=== PATIENT | female | born 1985 | race Caucasian/White ===

== ENCOUNTER 2017-11-04 11:38 | Emergency (ER) | payer OTHER ==
[2017-11-04 11:38] VITALS: BMI 29.2
[2017-11-04] MEDS ORDERED: Sodium Chloride 0.9% 1,000 ML IV ONE (12:06)
--- NOTE | 2017-11-04 12:09 | C.PDOC ---
History Of Present Illness 32 y/o female, with no significant prior history, presents to ED for evaluation of multiple episodes of vomiting since last night. Denies blood in vomit, fever , chills, diarrhea, or abdominal pain. Time Seen by Provider: 11/04/17 12:02 Chief Complaint (Nursing): GI Problem History Per: Patient History/Exam Limitations: no limitations Past Medical History Reviewed: Historical Data, Nursing Documentation, Vital Signs Vital Signs: Last Vital Signs Temp 98.3 F 11/04/17 17:14 Pulse 67 11/04/17 17:14 Resp 16 11/04/17 17:14 BP 109/64 11/04/17 17:14 Pulse Ox 99 11/04/17 17:14 - Medical History PMH: Anemia, Gastritis Denies: Chronic Kidney Disease Surgical History: Cholecystectomy - [facility] Procedures LAPAROSCOPIC CHOLECYSTECTOMY (07/12/14) LAPAROSCOPIC ROBOTIC ASSISTED PROCEDURE (07/12/14) Family History: States: CAD, Diabetes (mother), Hypertension (mother) - Social History Hx Tobacco Use: No Hx Alcohol Use: Yes Hx Substance Use: Yes - Immunization History Hx Tetanus Toxoid Vaccination: No Hx Influenza Vaccination: Yes Hx Pneumococcal Vaccination: No Review Of Systems Except As Marked, All Systems Reviewed And Found Negative. Constitutional: Negative for: Fever, Chills Cardiovascular: Negative for: Chest Pain Respiratory: Negative for: Shortness of Breath Gastrointestinal: Positive for: Nausea, Vomiting. Negative for: Abdominal Pain , Diarrhea, Constipation, Hematemesis Genitourinary: Negative for: Dysuria, Frequency, Hematuria Physical Exam - Physical Exam Appears: Non-toxic, No Acute Distress Skin: Normal Color, Warm, Dry Head: Atraumatic, Normacephalic Eye(s): bilateral: Normal Inspection Oral Mucosa: Moist Cardiovascular: Rhythm Regular Respiratory: Normal Breath Sounds, No Rales, No Rhonchi, No Wheezing Gastrointestinal/Abdominal: Normal Exam, Bowel Sounds, Soft, No Tenderness, No Guarding, No Rebound Back: No CVA Tenderness Extremity: Normal ROM Neurological/Psych: Oriented x3, Normal Speech ED Course And Treatment - Laboratory Results Result Diagrams: 11/04/17 12:11 11/04/17 12:11 O2 Sat by Pulse Oximetry: 100 (RA) Pulse Ox Interpretation: Normal Medical Decision Making Medical Decision Making: ro gastrits colitis viral syndrome Plan: Blood work Urinalysis Protonix Zofran IV fluids pt reassesd: symptoms improved. asking for food. no abd tenderness no adenxal tenderness Disposition - Disposition Referrals: [facility] [Outside] [facility] [Outside] Lexie Goel DO [Staff Provider] - Renny Stein MD [Staff Provider] - Disposition: HOME/ ROUTINE Disposition Time: 05:00 Condition: STABLE Additional Instructions: follow up withyour doctor/clinic and specialists. you may need further testing as an outpatient. return to er with worsening symptoms or concerns. Instructions: Acute Abdomen (Belly Pain) Forms: True Office ([place]er) - Clinical Impression Clinical Impression: Vomiting - Scribe Statement The provider has reviewed the documentation as recorded by the Scribe KP All medical record entries made by the Scribe were at my direction and personally dictated by me. I have reviewed the chart and agree that the record accurately reflects my personal performance of the history, physical exam, medical decision making, and the department course for this patient. I have also personally directed, reviewed, and agree with the discharge instructions and disposition.
[2017-11-04] MEDS ORDERED: Sodium Chloride 0.9% 1,000 ML ONE (12:14)
[2017-11-04 12:15] LABS: BASO % 0.4 % (0.0-2.0); EOS % 0.1 % (0.0-4.0); HEMOGLOBIN 12.6 g/dL (11.0-16.0); LYMPH # 1.3 K/uL (1.0-4.3); LYMPH % 14.5 % (20.0-40.0); MEAN CELL VOLUME 90.7 fL (81.0-99.0); MEAN CORPUSCULAR HEMOGLOBIN 30.8 pg (27.0-31.0); MEAN CORPUSCULAR HGB CONC 33.9 g/dL (33.0-37.0); MEAN PLATELET VOLUME 8.3 fL (7.2-11.7); MONO # 0.5 K/uL (0.0-0.8); MONO % 5.1 % (0.0-10.0); NEUT # 7.2 K/uL (1.8-7.0); NEUT % 79.9 % (50.0-75.0); RBC 4.1 Mil/uL (3.80-5.20); RED CELL DISTRIBUTION WIDTH 13.7 % (11.5-14.5)
[2017-11-04 12:22] LABS: INR 1.1
[2017-11-04 12:26] LABS: ALB/GLOB RATIO 1.5 (1.0-2.1); ALBUMIN 4.8 g/dL (3.5-5.0); ALT/SGPT 51 U/L (9-52); AST/SGOT 104 U/L (14-36); BILIRUBIN,DIRECT 0.3 mg/dL (0.0-0.4); BLOOD UREA NITROGEN 9 mg/dL (7-17); CALCIUM 9.6 mg/dl (8.6-10.4); GFR NON-AFRICAN AMERICAN > 60; LIPASE 82 U/L (23-300)
[2017-11-04 13:27] LABS: HCG,QUALITATIVE URINE NEGATIVE (NEGATIVE)
[2017-11-04 13:31] LABS: SQUAMOUS EPITHIAL 2 /hpf (0-5); URINE BILIRUBIN NEGATIVE (NEGATIVE); URINE BLOOD NEGATIVE (NEGATIVE); URINE CLARITY Clear (Clear); URINE COLOR Yellow (YELLOW); URINE GLUCOSE (UA) NORMAL (Normal); URINE LEUKOCYTE ESTERASE NEG Leu/uL (Negative); URINE PROTEIN NEGATIVE (NEGATIVE); URINE UROBILINOGEN NORMAL mg/dL (0.2-1.0)
[2017-11-04] MEDS ORDERED: Iohexol 350mg/ml 100 ML ONE (15:16)
--- NOTE | 2017-11-04 17:03 | CT ---
Date of service: 11/04/2017 PROCEDURE: CT Abdomen and Pelvis with contrast HISTORY: Vomiting COMPARISON: None. TECHNIQUE: Contiguous helical/transaxial sections of the abdomen and pelvis performed following intravenous contrast injection. Additional 2D sagittal and coronal reformats generated. Contrast dose: 100 cc Visipaque 320 Radiation dose: Total exam DLP = 540.27 MGy-cm. This CT exam was performed using one or more of the following dose reduction techniques: Automated exposure control, adjustment of the mA and/or kV according to patient size, and/or use of iterative reconstruction technique. FINDINGS: LOWER THORAX: Heart size normal. No significant pericardial effusion. Tiny hiatal hernia. Lung bases clear. LIVER: Liver demonstrates normal size. Mild fatty hepatic infiltration. No evidence of hepatic mass collection or calcification. Portal and splenic veins are opacified. GALLBLADDER AND BILE DUCTS: Cholecystectomy. PANCREAS: Unremarkable. No gross lesion or ductal dilatation. SPLEEN: Unremarkable. ADRENALS: Unremarkable. No mass. KIDNEYS AND URETERS: Unremarkable. No hydronephrosis. No solid mass. VASCULATURE: Unremarkable. No aortic aneurysm. BOWEL: Evaluation of the bowel is slightly limited due to the lack of oral contrast. Stomach is incompletely distended which in part accounts for thick-walled appearance. However the rugal fold pattern is prominent. Rule out gastritis. Visualized loops of small bowel exhibit normal contour and caliber. No evidence acute mechanical small bowel obstruction. Stool and air seen throughout the large bowel. APPENDIX: Normal-appearing appendix best seen on coronal sequence image number [id number]. PERITONEUM: Unremarkable. No free fluid. No free air. LYMPH NODES: Unremarkable. No enlarged lymph nodes. BLADDER: Unremarkable. REPRODUCTIVE: There appears to be a small amount of fluid in the right adnexal region adjacent to the right aspect of the body of the uterus. BONES: No acute compression fractures no retropulsed fragments. OTHER FINDINGS: None. IMPRESSION: Mild fatty hepatic infiltration. Prominent gastric rugal fold pattern which could be in part due to a incomplete distension however the rule out gastritis. There is small amount of fluid in the right adnexal region. Clinic correlation recommended.
[2017-11-04 17:14] VITALS: BP 109/64; PULSE 67; RESP 16; TEMP 98.3
[2017-11-04 20:26] VITALS: O2SAT 100
== END 2017-11-04 17:48 | disposition home or self-care (01) ==
LOC: C.ER 11:38
DX: R11.10 Vomiting, unspecified (principal)
CPT/HCPCS: 74177; 80053; 81001; 82248; 83690; 84703; 85025; 85610; 85730; 96361; 96374; 96375; 99284; C9113; J2405; J7030; Q9967